=== PATIENT | female | born 1980 | race Caucasian/White ===

== ENCOUNTER 2023-10-09 15:14 | Emergency (ER) | payer OTHER ==
[~2023-10-09] VITALS: Ht 157.5 cm; Wt 68.0 kg
[2023-10-09 15:17] VITALS: BP_SYST 112; PULSE 129; RESP 22; TEMP 98.3; O2SAT 97
[2023-10-09] MEDS ORDERED: methylPREDNISolone SOD SUCC/PF 62.5 MG/ML VIAL ONE (15:38)
[2023-10-09] MEDS: methylPREDNISolone SOD SUCC/PF 62.5 MG/ML VIAL IVP ONE (15:47)
[2023-10-09] MEDS: DIPHENHYDRAMINE INJ 50 MG/ML VIAL IVP ONE (15:48)
[2023-10-09] MEDS: FAMOTIDINE PF 20 MG/2 ML VIAL IVP ONE (15:48)
[2023-10-09 18:21] LABS: BASOPHILS % (AUTO) 0.5 % (0.0-2.0); EOSINOPHILS # (AUTO) 0.1 K/uL (0.0-0.4); EOSINOPHILS % (AUTO) 3.1 % (0.0-4.0); HEMATOCRIT 42.1 % (36-48); HEMOGLOBIN 14.5 g/dL (12.0-16.0); LYMPHOCYTES # (AUTO) 0.5 K/uL (1.0-5.5); LYMPHOCYTES % (AUTO) 12.3 % (20.5-51.5); MEAN CORPUSCULAR HEMOGLOBIN 31 pg (27-31); MEAN CORPUSCULAR HGB CONC 35 % (32-36); MEAN CORPUSCULAR VOLUME 89 fL (79.0-98.0); MONOCYTES # (AUTO) 0.1 K/uL (0.0-1.0); MONOCYTES % (AUTO) 3.9 % (1.7-9.3); NEUTROPHILS % (AUTO) 80.2 % (40.0-70.0); PLATELET COUNT (AUTO) 162 K/uL (130-430); RED BLOOD CELL COUNT(AUTO) 4.71 MIL/uL (4.2-6.2); RED CELL DISTRIBUTION WIDTH 13.2 % (9.0-15.0); WHITE BLOOD COUNT (AUTO) 3.8 K/uL (4.8-10.8)
[2023-10-09] MEDS: NACL 0.9% 1,000 ML IV ONE (18:27)
[2023-10-09 18:32] LABS: ALBUMIN 3.5 g/dL (3.4-4.8); CALCIUM 8.4 mg/dL (8.4-11.0); CREATININE 0.87 mg/dL (0.55-1.30); POTASSIUM 4.1 mmol/L (3.5-5.1); TOTAL BILIRUBIN 0.6 mg/dL (0.0-1.0); TOTAL PROTEIN, SERUM 7.2 g/dL (6.4-8.3)
[2023-10-09 19:11] LABS: MONOTEST NEGATIVE (NEGATIVE)
[2023-10-09 19:21] LABS: INFLUENZA TYPE A Negative (NEGATIVE); INFLUENZA TYPE B NEGATIVE (NEGATIVE)
[2023-10-09] MEDS ORDERED: DIPH25CA83 PO (20:23)
[2023-10-09] MEDS ORDERED: FAMO-132 PO (20:23)
[2023-10-09] MEDS ORDERED: PRED20TA PO (20:23)
[2023-10-09] MEDS ORDERED: LORA10TA7 PO (20:23)
[2023-10-09] MEDS: KETOROLAC TROMETHAMINE 30 MG VIAL IVP ONE (20:24)
[2023-10-09] MEDS ORDERED: CETI10CA PO (20:48)
[2023-10-09 21:02] VITALS: BP_SYST 111; PULSE 99; RESP 18; TEMP 99.8; O2SAT 96
== END 2023-10-09 21:03 | disposition home or self-care (01) ==
LOC: SED 15:14
DX: R21 Rash and other nonspecific skin eruption (principal); T50.995A Adverse effect of other drugs, medicaments and biological substances, initial encounter; Z20.822 Contact with and (suspected) exposure to COVID-19; R59.1 Generalized enlarged lymph nodes; Z79.899 Other long term (current) drug therapy; Z79.2 Long term (current) use of antibiotics; Y92.89 Other specified places as the place of occurrence of the external cause
CPT/HCPCS: 99284; 96374; 96375; 96361; 87426; 80053; 85025; 86308; 87040; 36415; 70220; 83605; 87804 ×2; J1200; J3490; J1885; J7030; J2930